=== PATIENT | male | born 1990 | race Asian ===

== ENCOUNTER 2020-10-15 21:12 | Emergency (ER) | payer MEDICAID ==
[~2020-10-15] VITALS: Ht 162.6 cm; Wt 54.5 kg
[2020-10-15 21:52] VITALS: BP 108/66
--- NOTE | 2020-10-15 22:33 | PHYS DOC ---
Past Medical History Past Medical History: Migraines Past Surgical History: No Surgical History Smoking Status: Current Every Day Smoker Alcohol Use: Rarely Drug Use: None General Adult EDM: Chief Complaint: SHOULDER INJURY HPI: HPI: Patient is a 30 year old presents requesting a work excuse. Patient states while at work yesterday evening he slipped and fell landing on his left shoulder and left wrist. On exam patient has full range of motion of left shoulder left wrist. Patient does have some ecchymosis along the distal ulna. Review of Systems: Review of Systems: Review of systems: Constitutional symptoms- No fever, no chills. Eyes- No Discharge, No Visual Loss Respiratory symptoms- No shortness of breath, No wheezing, No Dyspnea on Exertion Cardiovascular Systems; No chest pain, No Palpitations, No syncope Gastrointestinal symptoms: NO abdominal pain, no nausea, no vomiting or diarrhea. Genitourinary symptoms: No dysuria. Musculoskeletal symptoms: No back pain Positive extremity pain. NEUROLOGICAL Symptoms: No headache, no generalized weakness; No focal Weakness Skin: No rash. Heart Score: C/O Chest Pain: N/A Risk Factors: Risk Factors: DM, Current or recent (<one month) smoker, HTN, HLP, family history of CAD, obesity. Risk Scores: Score 0 - 3: 2.5% MACE over next 6 weeks - Discharge Home Score 4 - 6: 20.3% MACE over next 6 weeks - Admit for Clinical Observation Score 7 - 10: 72.7% MACE over next 6 weeks - Early Invasive Strategies Allergies: Allergies: Allergies Coded Allergies Type Severity Reaction Last Updated Verified No Known Drug Allergies 08/29/13 No Physical Exam: PE: Constitutional: Well developed, well nourished, no acute distress, non-toxic appearance. [] HENT: Normocephalic, atraumatic, bilateral external ears normal, oropharynx moist, no oral exudates, nose normal. [] Eyes: PERRLA, EOMI, conjunctiva normal, no discharge. [] Neck: Normal range of motion, no tenderness, supple, no stridor. [] Cardiovascular:Heart rate regular rhythm, no murmur [] Lungs & Thorax: Bilateral breath sounds clear to auscultation [] Abdomen: Bowel sounds normal, soft, no tenderness, no masses, no pulsatile masses. [] Skin: Warm, dry, no erythema, no rash. [Contusion left wrist] Back: No tenderness, no CVA tenderness. [] Extremities: No tenderness, no cyanosis, no clubbing, ROM intact, no edema. [] Neurologic: Alert and oriented X 3, normal motor function, normal sensory function, no focal deficits noted. [] Psychologic: Affect normal, judgement normal, mood normal. [] Current Patient Data: Vital Signs: Vital Signs Date Time Temp Pulse Resp B/P (MAP) Pulse Ox O2 Delivery O2 Flow Rate FiO2 10/15/20 21:52 98.6 100 18 108/66 (74) 100 Room Air 98.6 EKG: EKG: [] Radiology/Procedures: Radiology/Procedures: [] Course & Med Decision Making: Course & Med Decision Making Pertinent Labs and Imaging studies reviewed. (See chart for details) [] Based upon history of present illness and physical exam no emergent radiologic imaging ordered. Patient has full range of motion of extremities. He is requesting a work excuse. Dalila Disclaimer: Dalila Disclaimer: This electronic medical record was generated, in whole or in part, using a voice recognition dictation system. Departure Departure Impression: Primary Impression: Fall Additional Impressions: Shoulder pain Wrist pain Disposition: HOME / SELF CARE / HOMELESS Condition: STABLE Referrals: NO PCP (PCP) Patient Instructions: Shoulder Pain, Wrist Pain MARIANA MARTINEZ I DO Oct 15, 2020 22:33
== END 2020-10-15 22:46 | disposition home or self-care (01) ==
LOC: ER 21:12
DX: S60.212A Contusion of left wrist, initial encounter (principal); M25.512 Pain in left shoulder; G43.909 Migraine, unspecified, not intractable, without status migrainosus; F17.200 Nicotine dependence, unspecified, uncomplicated; G89.11 Acute pain due to trauma; W01.0XXA Fall on same level from slipping, tripping and stumbling without subsequent striking against object, initial encounter; Y93.89 Activity, other specified; Y92.89 Other specified places as the place of occurrence of the external cause; Y99.8 Other external cause status
CPT/HCPCS: 99284

== ENCOUNTER 2021-02-28 22:30 | Emergency (ER) | payer OTHER, MEDICAID ==
[~2021-02-28] VITALS: Ht 167.6 cm; Wt 55.0 kg
[2021-02-28 23:10] VITALS: BP 132/84
--- NOTE | 2021-02-28 23:51 | PHYS DOC ---
Past Medical History Past Medical History: Migraines Past Surgical History: No Surgical History Smoking Status: Current Every Day Smoker Alcohol Use: Rarely Drug Use: None General Adult EDM: Chief Complaint: HAND PROBLEM HPI: HPI: Patient is a 30-year-old male who presents to the emergency department for chemi taylor exposure to his right hand. Patient reports that he was working at [employer] 2 days ago when the fluid that was identified as peroxide got onto his hand. He reports that he washed it off and did have some mild burning but that resolved after he cleaned his hands. Patient is complaining of increased sensitivity to his fingertips and fingertip pain that started following the exposure. Patient states that he is unsure if it is from the chemical exposure or if it is because he clipped the skin around his fingernails too much. Patient denies any decreased range of motion, wounds, fevers, decreased sensation to his hand. Review of Systems: Review of Systems: Constitutional: See HPI Musculoskeletal: See HPI Integument: See HPI Neurologic: See HPI Heart Score: C/O Chest Pain: N/A Risk Factors: Risk Factors: DM, Current or recent (<one month) smoker, HTN, HLP, family history of CAD, obesity. Risk Scores: Score 0 - 3: 2.5% MACE over next 6 weeks - Discharge Home Score 4 - 6: 20.3% MACE over next 6 weeks - Admit for Clinical Observation Score 7 - 10: 72.7% MACE over next 6 weeks - Early Invasive Strategies Allergies: Allergies: Allergies Coded Allergies Type Severity Reaction Last Updated Verified No Known Drug Allergies 08/29/13 No Physical Exam: PE: Constitutional: Well developed, well nourished, no acute distress, non-toxic ap pearance. [] HENT: Normocephalic, atraumatic, bilateral external ears normal, oropharynx moist, no oral exudates, nose normal. [] Eyes: PERRLA, EOMI, conjunctiva normal, no discharge. [] Neck: Normal range of motion, no stridor Cardiovascular: Normal peripheral perfusion Lungs & Thorax: Normal work of breathing, no tachypnea Abdomen: Soft and flat Skin: Warm, dry, no erythema, no rash, patient has no lesions or erythema noted to his fingers. [] Back: Normal range of motion Extremities: No tenderness, no cyanosis, no clubbing, ROM intact, no edema. Right hand: Full range of motion, neuro intact Neurologic: Alert and oriented X 3, normal motor function, normal sensory function, no focal deficits noted. [] Psychologic: Affect normal, judgement normal, mood normal. [] Current Patient Data: Vital Signs: Vital Signs Date Time Temp Pulse Resp B/P (MAP) Pulse Ox O2 Delivery O2 Flow Rate FiO2 02/28/21 23:10 98.6 104 18 132/84 (100) 98 Room Air 98.6 EKG: EKG: [] Radiology/Procedures: Radiology/Procedures: [] Course & Med Decision Making: Course & Med Decision Making Closure withPertinent Labs and Imaging studies reviewed. (See chart for details) [] Patient presents to the emergency department for pain to his fingertips that started 2 days ago. Patient was unsure if the finger pain was due to hydrogen peroxide at work or because he cut his skin around his fingernails too short. Patient states that following the chemical exposure he washed his hand often no longer had any burning pain. Patient has no wounds, lesions or ulcerations he is full range of motion of his fingers, neuro intact. I informed patient that hydration peroxide is not usually harmful. Advised him to keep his hands clean dry and moist, avoid cutting the skin around his fingernails too short and fol low-up with his doctor. Dalila Disclaimer: Dalila Disclaimer: This electronic medical record was generated, in whole or in part, using a voice recognition dictation system. Departure Departure Impression: Primary Impression: Chemical exposure Disposition: 01 HOME / SELF CARE / HOMELESS Condition: GOOD Referrals: NO PCP (PCP) Patient Instructions: Medical Screening Exam Additional Instructions: You were seen in the emergency department for fingertip pain. As we discussed, hydrogen peroxide is safe for the skin. Please practice good hand hygiene, keep your hands clean and dry and moist. It is possible that the pain to your fingertips is caused by cutting your skin around your finger too much, please avoid this in the future. Please monitor for any signs of infection such as redness, warmth, swelling, any new wounds, high fevers, vomiting, if you develop any of the symptoms please return to the ER.. Please follow-up with your primary care provider within a week or in regards to your ER visit. PEPE [employer]NA [employer] Feb 28, 2021 23:51
== END 2021-03-01 00:15 | disposition home or self-care (01) ==
LOC: ER 22:30
DX: Z77.098 Contact with and (suspected) exposure to other hazardous, chiefly nonmedicinal, chemicals (principal); G43.909 Migraine, unspecified, not intractable, without status migrainosus; F17.200 Nicotine dependence, unspecified, uncomplicated
CPT/HCPCS: 99281

== ENCOUNTER 2021-03-05 23:46 | Emergency (ER) | payer MEDICAID, OTHER ==
[~2021-03-05] VITALS: Ht 177.8 cm; Wt 54.5 kg
--- NOTE | 2021-03-06 02:08 | PHYS DOC ---
Past Medical History Past Medical History: Migraines Past Surgical History: No Surgical History Smoking Status: Current Every Day Smoker Alcohol Use: Rarely Drug Use: None General Adult EDM: Chief Complaint: NAUSEA/VOMITING/DIARRHEA HPI: HPI: Patient is a 30 year old male without pertinent past medical history who presents with 3 days of diarrhea. At least 2 loose stools per day. Described as watery. No blood or black stools. Mild nausea. No vomiting. Started after he ate some noodles on Thursday that he thinks may have been bad. He has had some cramping with his stools, but no abdominal pain. No recent antibiotics. No recent travel. No undercooked meats. No known sick contacts. Is requesting Covid testing. Review of Systems: Review of Systems: Constitutional: Denies fever or chills. [] Eyes: Denies change in visual acuity. [] HENT: Denies nasal congestion or sore throat. [] Respiratory: Denies cough or shortness of breath. [] Cardiovascular: Denies chest pain or edema. [] GI: Reports diarrhea, abdominal cramping. : Denies dysuria. [] Musculoskeletal: Denies back pain or joint pain. [] Integument: Denies rash. [] Neurologic: Denies headache, focal weakness or sensory changes. [] Endocrine: Denies polyuria or polydipsia. [] Lymphatic: Denies swollen glands. [] Psychiatric: Denies depression or anxiety. [] Heart Score: C/O Chest Pain: No Allergies: Allergies: Allergies Coded Allergies Type Severity Reaction Last Updated Verified No Known Drug Allergies 08/29/13 No Physical Exam: PE: Constitutional: Well developed, well nourished, no acute distress, non-toxic appearance. [] Cardiovascular:Heart rate regular rhythm, no murmur [] Lungs & Thorax: Bilateral breath sounds clear to auscultation [] Abdomen: Soft, nontender throughout. Loud bowel sounds heard without stethoscope auscultation. Skin: Warm, dry, no erythema, no rash. [] Extremities: No tenderness, no cyanosis, no clubbing, ROM intact, no edema. [] Neurologic: Alert and oriented X 3, normal motor function, normal sensory function, no focal deficits noted. [] Psychologic: Affect normal, judgement normal, mood normal. [] EKG: EKG: [] Radiology/Procedures: Radiology/Procedures: [] Course & Med Decision Making: Course & Med Decision Making Pertinent Labs and Imaging studies reviewed. (See chart for details) Patient 30-year-old male who presents with 3 days of diarrhea and mild abdominal cramping Afebrile, normal vital signs on arrival. Is well-appearing on exam. Has no abdominal tenderness to palpation. Do not feel that he requires imaging. No risk factors for C. difficile. No signs/symptoms of invasive bacterial enteritis. He appears well-hydrated, and by history does not have significant dehydration. Do not feel that labs would be helpful. He requested COVID testing which was sent. I counseled him on use of Imodium and discussed return precautions for fever, abdominal pain, bloody stools. Dragon Disclaimer: Dragyamilka Disclaimer: This electronic medical record was generated, in whole or in part, using a voice recognition dictation system. Departure Departure Impression: Primary Impression: Diarrhea Disposition: HOME / SELF CARE / HOMELESS Condition: STABLE Referrals: NO PCP (PCP) Patient Instructions: Diarrhea Additional Instructions: You can take Imodium to decrease your diarrhea. Take 4 mg initially. After every loose stool you can take an additional 2 mg until your symptoms are well controlled. At that time please stop taking any Imodium. Do not take more than 8 tablets (16 mg) within a 24-hour timeframe. If you develop abdominal pain, fever/chills, or bloody stools please return to the emergency department for reevaluation. REJI LEDEZMA MD Mar 06, 2021 02:08
[2021-03-06 02:28] VITALS: BP 125/70
--- NOTE | 2021-03-07 15:37 | NUR ---
IP: Informed pt of negative covid test. Pt verbalized understanding.
== END 2021-03-06 02:33 | disposition home or self-care (01) ==
LOC: ER 23:46
DX: R19.7 Diarrhea, unspecified (principal); Z20.822 Contact with and (suspected) exposure to COVID-19; R11.0 Nausea; G43.909 Migraine, unspecified, not intractable, without status migrainosus; F17.200 Nicotine dependence, unspecified, uncomplicated
CPT/HCPCS: 99283; U0003; U0005